=== PATIENT | female | born 1965 | race Caucasian/White ===

== ENCOUNTER 2016-10-17 16:37 | Emergency (ER) | payer SELFPAY ==
[2016-10-17 16:58] VITALS: BP 172/59
--- NOTE | 2016-10-17 17:42 | ED Physician Documentation ---
General Adult - HISTORIAN Historian: patient, parent - HPI Stated Complaint: generalized pain Chief Complaint: General Adult Additional Information: states that she has all over body cramps and pain. states that she has many ailments, wont go to see a dr. says she is cramping in her stomach and legs. Onset: hours Timing: still present Severity: moderate Further Comments: yes (she most likely needs to be eval by several specialists, and get a PCP but she refuses.) - ROS CONST: other (multiple complaints) EYES/ENT: none CVS/RESP: none GI/: abdominal pain (cramping) MS/SKIN/LYMPH: calf pain, joint pain, leg pain, back pain NEURO/PSYCH: headache - PAST HX Past History: other (says she has fibromyalgia and that nobody can physically touch her) Other History: other (sleep apnea, narcolepsy) Surgeries/Procedures: other (oral surgery.) Immunizations: UTD Allergies/Adverse Reactions: Allergies Allergy/AdvReac Type Severity Reaction Status Date / Time Vfffacv-[id number]-Tfn Reductase Allergy Mild Verified 10/17/16 16:58 Inhibitor steroids Allergy Unknown Uncoded 10/17/16 17:00 Home Medications: Ambulatory Orders Medication Instructions Recorded Ibuprofen [Motrin Ib] 400 mg PO PRN 10/17/16 - SOCIAL HX Smoking History: non-smoker Alcohol Use: none Drug Use: none - FAMILY HX Family History: Yes - VITAL SIGNS Vital Signs: Vital Signs Temp Pulse Resp BP Pulse Ox 98.7 F 88 30 H 172/59 98 10/17/16 16:47 10/17/16 16:47 10/17/16 16:47 10/17/16 16:47 10/17/16 16:47 - REVIEWED ASSESSMENTS Nursing Assessment Reviewed: Yes Vitals Reviewed: Yes Progress - Results/Orders Results/Orders: she states she was allergic to steroids but her reaction to a joint injection was swelling of the joint. ED Results Lab/Radiology - Orders Orders: ED Orders Category Date Time Status Diazepam [Valium] Med 10/17/16 17:35 Once 5 mg IVP NOW ONE Orphenadrine Citrate [Norflex] Med 10/17/16 17:37 Once 60 mg IV NOW ONE methylPREDNISolone SOD SUCC [Solu-MEDROL] Med 10/17/16 17:37 Once 125 mg IVP NOW ONE General Adult Physical Exam - PHYSICAL EXAM GENERAL APPEARANCE: moderate distress EENT: ENT inspection normal NECK: normal inspection RESPIRATORY: no resp distress CVS: reg rate & rhythm ABDOMEN: soft BACK: normal inspection SKIN: warm/dry, normal color EXTREMITIES: tenderness (diffuse) NEURO: oriented X3 Discharge Clincal Impression: Panic disorder, Myalgia, Muscle spasm of both lower legs Referrals: Primary Doctor,No [Primary Care Provider] - 2 Days Home Medications: Ambulatory Orders Ibuprofen [Motrin Ib] 400 mg PO PRN 10/17/16 Condition: Stable Disposition: 01 HOME, SELF-CARE Decision to Admit: NO Date of Decison to Admit: 10/17/16 Decision Time: 18:06
[2016-10-17] MEDS: methylPREDNISolone SOD SUCC 125 MG/2 ML VIAL IVP ONE (18:05)
[2016-10-17] MEDS: ORPHENADRINE CITRATE 60 MG/2ML IV ONE (18:05)
[2016-10-17] MEDS: DIAZEPAM 5 MG/ML DISP.SYRIN IVP ONE (18:05)
== END 2016-10-17 18:46 | disposition home or self-care (01) ==
LOC: ED 16:37
DX: F41.0 Panic disorder [episodic paroxysmal anxiety] (principal); M79.1 Myalgia; M62.831 Muscle spasm of calf; G47.30 Sleep apnea, unspecified; G47.419 Narcolepsy without cataplexy
CPT/HCPCS: J2360; J2930; J3360; 96374; 96375; 99283; S1016

== ENCOUNTER 2018-06-29 20:07 | Emergency (ER) | payer BC ==
--- NOTE | 2018-06-29 20:24 | ED Physician Documentation ---
Dyspnea - HISTORIAN Historian: patient - HPI Stated Complaint: shortness of breath Chief Complaint: Dyspnea Additional Information: Patient presents to ED with a 2 hour history of cough and shortness of breath. Patient has a history of COPD and uses Albuterol inhaler as needed, which she has not needed in several months. Patient states she hasn't had much energy the past week. Denies fever, chills, chest pain, nausea/vomiting. Patient later states she has had more swelling in her legs over the past 2 weeks. She is not on a diuretic. Onset: hours (2) Duration: continues in ED Initiating Event: other (anxiety) Severity: mild Exacerbated By: other (anxiety) Associated Symptoms: denies: chills, fever, chest pain - ROS CONST: no problems EYES/ENT: none GI/: none NEURO/PSYCH: headache MS/SKIN/LYMPH: none - PAST HX Lung Disease: COPD Cardiac Disease: none PE Risk Factors: none Surgeries/Procedures: none Other History: none Allergies/Adverse Reactions: Allergies Allergy/AdvReac Type Severity Reaction Status Date / Time Daefnvw-Xxb-Vlm Reductase Allergy Mild Verified 06/29/18 20:39 Inhibitor steroids Allergy Unknown Uncoded 06/29/18 20:39 Home Medications: Ambulatory Orders Medication Instructions Recorded Ibuprofen [Motrin Ib] 400 mg PO PRN 10/17/16 Furosemide [Lasix] 20 mg PO DAILY 14 Days #14 tablet 06/29/18 Potassium Chloride 10 meq PO BID 14 Days #28 tablet.er 06/29/18 - SOCIAL HX Smoking History: cigarettes, greater than 1 pack/day Alcohol Use: none Drug Use: none - FAMILY HX Family History: none - VITAL SIGNS Vital Signs: Vital Signs Temp Pulse Resp BP Pulse Ox 172/59 10/17/16 18:40 - REVIEWED ASSESSMENTS Nursing Assessment Reviewed: Yes Vitals Reviewed: Yes Progress - Progress Progress: 2123 Patient stopped coughing while went out to the car to get jacket. - EKG/XRAY/CT EKG: NSR Comments: 2015 NSR 83 bpm ED Results Lab/Radiology - Radiology Radiology Impressions: Report Submission Date: June 29, 2018 8:50:24 PM CDT Patient Study Name: AMANDA GORE Date: June 29, 2018 8:29:28 PM CDT Modality Type: DX Gender: F Description: CHEST 2VIEW : 67 Institution: [facility] Physician: SHARON SMALLWOOD Chest two views History: Shortness of breath and cough for 1 day Findings: Pulmonary vascular congestion, cardiomegaly, and pulmonary edema are observed. There is no pleural effusion. Osseous structures are intact. Impression: Probable congestive heart failure. Electronically signed on June 29, 2018 8:50:24 PM CDT by: Sher Danielson - Orders Orders: ED Orders Category Date Time Status Place IV Lock 1T Care 06/29/18 20:12 Active CHEST 2VIEW [RAD] Stat Exams 06/29/18 Ordered CBC/PLATELET/DIFF Routine Lab 06/29/18 Ordered CMP Routine Lab 06/29/18 Ordered TROPONIN I Stat Lab 06/29/18 Ordered Ipratropium/Albuterol Sulfate [Duoneb] Med 06/29/18 20:13 Discontinued 3 ml NEB NOW ONE EKG WITH COMPARISON Stat Ther 06/29/18 Ordered Dyspnea Physical Exam - EXAM General Appearance: no acute distress, alert EENT: RAMON Neck: nml inspection Respiratory: decreased air movement, other (coughing) CVS: reg. rate & rhythm, no murmur Abdomen: non-tender, no distention Skin: color nml, no rash Extremities: non-tender, edema (+1 lower extremity edema bilaterally to mid tib/fib) Neuro/Psych: oriented x3, motor nml Discharge Clincal Impression: CHF (congestive heart failure) Qualifiers: Heart failure type: unspecified Heart failure chronicity: unspecified Qualified Code(s): I50.9 - Heart failure, unspecified Prescriptions: Furosemide [Lasix] 20 mg PO DAILY 14 Days #14 tablet Potassium Chloride 10 meq PO BID 14 Days #28 tablet.er Referrals: Primary Doctor,No [Primary Care Provider] - 2 Days Additional Instructions: 1. Call [phone] to schedule an appointment at the clinic. It is important to establish care with a primary care physician for further evaluation. A sleep study, echocardiogram and stress test would be good investigative studies 2. Take Lasix and potassium daily for next 2 weeks. Discuss with PCP continuing this medication 3. Return to ER for new or worsening symptoms Condition: Stable Disposition: 01 HOME, SELF-CARE Decision to Admit: NO Date of Decison to Admit: 06/29/18 Decision Time: 21:39
[2018-06-29 20:39] LABS: BASOPHILS % 0.7 % (0.0-1.5); EOSINOPHILS % 3.8 % (0.0-6.8); MEAN CORPUSCULAR HEMOGLOBIN 27.7 pg (28.0-34.0); MONOCYTES % 10.9 % (0.0-11.0); NEUTROPHILS # 3.4 # k/uL (1.4-7.7)
[2018-06-29] MEDS: IPRATROPIUM/ALBUTEROL SULFATE 3 ML AMPUL.NEB NEB ONE (20:50)
--- NOTE | 2018-06-29 20:52 | Diagnostic Imaging Report ---
SHARON SMALLWOOD [facility] [id number] [facility].[address] [id number] Report Submission Date: June 29, 2018 8:50:24 PM CDT Patient Study Name: AMANDA GORE Date: June 29, 2018 8:29:28 PM CDT Modality Type: DX Gender: F Description: CHEST 2VIEW : 67 Institution: [facility] Physician: SHARON SMALLWOOD Chest two views History: Shortness of breath and cough for 1 day Findings: Pulmonary vascular congestion, cardiomegaly, and pulmonary edema are observed. There is no pleural effusion. Osseous structures are intact. Impression: Probable congestive heart failure. Electronically signed on June 29, 2018 8:50:24 PM CDT by: Sher CLEMONS
[2018-06-29] MEDS: HYDROcodone /APAP 5/325 1 EACH TABLET PO ONE (20:53)
[2018-06-29] MEDS: diphenhydrAMINE HCL 50 MG/ML VIAL IVP ONE (20:53)
[2018-06-29] MEDS: MONTELUKAST SODIUM 10 MG TABLET PO ONE (20:53)
[2018-06-29] MEDS: AZITHROMYCIN 250 MG TABLET PO ONE (20:53)
[2018-06-29 20:55] VITALS: BP 137/61
[2018-06-29 20:55] LABS: eGFR (Non-African) > 60
[2018-06-29] MEDS ORDERED: FUROSEMIDE 40 MG/4 ML VIAL IVP ONE (21:04)
== END 2018-06-29 22:05 | disposition home or self-care (01) ==
LOC: ED 20:07
DX: I50.9 Heart failure, unspecified (principal)
CPT/HCPCS: 36415; 71046; 80053; 84484; 85025; 93005; 94640; 96374; 99283; 99284; A9270; J1200; S1016